=== PATIENT | male | born 1975 | race Caucasian/White ===

== ENCOUNTER 2020-04-28 17:19 | Observation (INO) | payer BC, SELFPAY ==
[2020-04-28] VITALS (11 sets, daily range): BP systolic 101–126; BP diastolic 55–109; PULSE 73–102; RESP 14–20; TEMP 36.4–37.1; O2SAT 97–99; BMI 48.6; BMI 45.2
--- NOTE | 2020-04-28 17:43 | ECG_ITS ---
APPROVED REPORT Exam: Resting ECG HR:94 bpm ECG Measurements Heart Rate 94 AXES SD 138 P 46 QRSd 98 QRS 44 QT 358 T 24 QTc 447 <Conclusion> Normal sinus rhythm Nonspecific ST-T wave abnormalities Abnormal ECG Electronically signed by : Yosi Hancock, 04/29/2020 09:14:17
--- NOTE | 2020-04-28 17:43 | XR_ITS ---
PROCEDURE: XR CHEST 2V Patient Age:44Y CLINICAL HISTORY: syncope episode COMPARISON: [facility] THORACIC SPINE-3V SWIMMERS from 05/14/[id number] abdomen pelvis wo con from 11/08/2018 FINDINGS: PA and lateral chest performed today. Heart normal size with normal pulmonary vascularity. The lalo and mediastinal structures satisfactory.. Upper normal markings right infrahilar region towards right lung base most likely baseline but difficult to exclude a very minor subtle infiltrate.-Clinical correlation required. Suspect more likely reflect mild atelectasis accentuated by the generous overlying soft tissues of the chest accentuating lung markings here. However if respiratory symptoms or fever follow-up recommended I would note that previous CT showed some prominence of the anterior fat pad anteriorly which I believe accounts for minimal density project over the heart anteriorly on the lateral view, just above diaphragm Left lung stable clear.. Chest wall unremarkable. T-spine with no acute findings. Marginal osteophytes throughout most evident anterior and to the right No pleural effusion but no pneumothorax. IMPRESSION: No prominent findings but There is slight accentuation of markings right infrahilar region and towards RLL; more likely reflect mild atelectasis at towards the right lower lobe. Doubt but difficult to totally exclude a subtle early infiltrate-; clinical correlation required. If respiratory symptoms or fever consider follow-up . Dictated by: Anjum Muro MD 04/28/2020 22:18 Electronically signed by Anjum Muro MD in [place] 04/28/2020 22:18
--- NOTE | 2020-04-28 17:49 | HMH.EDGENADL ---
ED Disposition Clinical Impression: Near syncope, Acute kidney injury, Hyperglycemia Chest pain Qualifiers: Chest pain type: other chest pain Qualified Code(s): R07.89 - Other chest pain Disposition: Admitted As Inpatient Condition on Discharge: Good Instructions: DI for Syncope in Adults (Fainting), DI for Syncope in Children (Fainting) Referrals: Melissa Apodaca MD [Primary Care Provider] - Time of Disposition: 20:47 - Critical Care Critical Care Time: No Attestation: On 04/28/20, the high probability of a clinically significant, sudden or life threatening deterioration of the following system(s) required my full and direct attention, intervention and personal management. The time I documented below is in addition to time spent performing reported procedures but includes the following listed in this critical care notation. Medical Decision Making - Medical Records Medical records reviewed: Yes: I reviewed the patient's medical records. - Memo Inquiry Pt receiving controlled substance: No Vital Signs: 04/28/20 17:38 04/28/20 17:46 04/28/20 18:18 Temperature 98.7 F Temperature Source Oral Pulse Rate [Orthostatic Lying Right Radial] 95 H Pulse Rate [Orthostatic Sitting Right Radial] 97 H Pulse Rate [Orthostatic Standing Right Radial] 102 H Pulse Rate [Right Radial] 99 H 89 Respiratory Rate 20 Blood Pressure [Orthostatic Lying Right Arm] 110/55 L Blood Pressure [Orthostatic Sitting Right Arm] 101/58 L Blood Pressure [Orthostatic Standing Right Arm] 105/58 L Blood Pressure [Right Arm] 126/109 H 106/59 L Blood Pressure Mean [Right Arm] 114 74 Blood Pressure Source [Right Arm] Automatic Cuff Blood Pressure Position [Right Arm] Sitting 02 Sat by Pulse Oximetry 97 97 Oxygen Delivery Method Room Air Room Air - Lab Data Lab Results 04/28/20 17:36: WBC 13.4 H, RBC 4.50 L, Hgb 13.7 L, Hct 36.9 L, MCV 81.9, MCH 30.4, MCHC 37.1 H, RDW 13.2, Plt Count 306, MPV 7.9, Neut % (Auto) 62.7, Lymph % (Auto) 31.4, [place] % (Auto) 4.1, Eos % (Auto) 1.3, Baso % (Auto) 0.6, Neut # (Auto) 8.4 H, Lymph # (Auto) 4.2, [place] # (Auto) 0.6, Eos # (Auto) 0.2, Baso # (Auto) 0.1 04/28/20 17:36: Sodium 135 L, Potassium 4.6, Chloride 96 L, Carbon Dioxide 22, Anion Gap 21.6 H, BUN 37 H, Creatinine 2.40 H, Estimated Creat Clear 37, Estimated GFR 29 L, Est GFR ( Amer) 35 L, Glucose 330 H, Calcium 9.2, Total Bilirubin 0.5, AST 27, ALT 28, Alkaline Phosphatase 54, Troponin I < 0.01, Total Protein 7.3, Albumin 4.3, Globulin 3.0, Albumin/Globulin Ratio 1.4 04/28/20 17:36: D-Dimer < 100 Result diagrams: 04/28/20 17:36 04/28/20 17:36 Orders (Tests/Meds): ED MEDICATIONS Generic Name Dose Route Start Last Admin Trade Name Freq PRN Reason Stop Dose Admin Sodium Chloride 1,000 mls @ 999 mls/hr 04/28/20 17:45 04/28/20 17:49 Sod Chlor 0.9% 1000ml Bag IV 04/28/20 18:45 999 mls/hr .Q1H1M [facility] Administration Sodium Chloride 1,000 mls @ 150 mls/hr 04/28/20 20:30 Sod Chlor 0.9% 1000ml Bag IV 05/28/20 20:29 .[id number] [facility] ORDERS Category Date Time Status CTA Chest [CT angio chest] Stat Cat Scan 04/28/20 19:09 Ordered XR chest 2V Stat Exams 04/28/20 17:43 Taken Creatinine,Urine Random Stat Lab 04/28/20 19:42 Ordered Troponin I Q3H Lab 04/28/20 20:39 Received Troponin I Q3H Lab 04/28/20 23:45 Ordered Medical Decision Narrative: In summary this is a 44-year-old male with history of CAD and cardiac stents presenting to the emergency department with chest pain and near syncopal episodes. Patient is clinically stable on arrival. No significant hypertension. Differential diagnoses include cardiac syncope, CAD. And to obtain CBC, CMP, chest x-ray, EKG, troponin profile. EKG shows subtle T wave abnormality, but no significant ST segment elevation, otherwise nonischemic. Initial laboratory results remarkable for elevated glucose at 330. Patient is not on insulin. Also shows elevate
[2020-04-28 17:52] LABS: Basophils # 0.1 K/mm3 (0-0.2); Basophils % 0.6 % (0.1-2.0); Eosinophils # 0.2 K/mm3 (0.0-0.4); Eosinophils % 1.3 % (0.1-12.0); Hematocrit 36.9 % (42.0-52.0); Hemoglobin 13.7 g/dL (14.1-18.0); Lymphocytes # 4.2 K/mm3 (0.7-4.5); Lymphocytes % 31.4 % (10-50); Mean Corpuscular HGB Conc 37.1 g/dL (31.8-35.4); Mean Corpuscular Hemoglobin 30.4 pg (27.0-31.2); Mean Corpuscular Volume 81.9 fl (80-94); Mean Platelet Volume 7.9 fl (7.4-10.4); Monocytes # 0.6 K/mm3 (0.1-1.0); Monocytes % 4.1 % (1.7-9.3); Neutrophils # 8.4 K/mm3 (1.8-7.8); Neutrophils % 62.7 % (37.0-80.0); Platelet Count 306 K/mm3 (142-424); Red Cell Distribution Width 13.2 % (11.5-17.5); White Blood Count 13.4 K/mm3 (4.8-10.8)
[2020-04-28 17:54] LABS: Chloride 96 mmol/L (98-107); Potassium 4.6 mmoL/L (3.5-5.1); Sodium 135 mmol/L (136-145)
[2020-04-28 17:56] LABS: Blood Urea Nitrogen 37 mg/dl (9-20); Creatinine Clearance Estimated 37 mL/min (50-200); Estimated Glomerular Filt Rate 29 ml/min (>60); GFR (African American) 35 ML/MIN (>60)
[2020-04-28 17:57] LABS: Alanine Aminotransferase 28 U/L (12-78); Albumin Level 4.3 g/dl (3.5-5.0); Albumin/Globulin Ratio 1.4 (1.1-1.8); Alkaline Phosphatase 54 U/L (38-126); Anion Gap 21.6 mEq/L (5-15); Aspartate Amino Transferase 27 U/L (17-59); Bilirubin,Total 0.5 mg/dl (0.2-1.3); Carbon Dioxide 22 mmol/L (22.0-30.0); Total Protein,Serum 7.3 g/dl (6.3-8.2)
[2020-04-28 17:58] LABS: Calcium 9.2 mg/dl (8.4-10.2); Glucose 330 mg/dl (74-100)
--- NOTE | 2020-04-28 18:01 | PC.NURSE ---
Pt returned from rad.
[2020-04-28 18:12] LABS: Troponin I < 0.01 ng/ml (0.00-0.034)
[2020-04-28 20:16] LABS: D-Dimer < 100 ng/mL (0-400)
[2020-04-28 21:14] LABS: Troponin I < 0.01 ng/ml (0.00-0.034)
--- NOTE | 2020-04-28 22:01 | PC.NURSE ---
PT ARRIVED TO THE FLOOR VIA W/C FROM ED AT 2200.
--- NOTE | 2020-04-28 23:01 | HMH.HP ---
*Admission Date: 04/28/20 *Chief complaint: Blurry vision, lightheaded *History of present illness: This is the history as recorded in the emergency room on admission : 44-year-old male presenting to the emergency department with chest pain. Symptoms started around 2 hours prior to arrival. Pain is located on the left side of his chest and near his scapula. Has a heavy sensation in his left arm. When pain happens he has spots in his vision and his eyes go llamas. Symptoms lasted for 20 to 30 minutes and then resolved. He has had one episode like this before. It happened yesterday. He had been at work, standing on his feet all day. Has a history of coronary artery disease. Had stents placed 5 years ago. Takes aspirin and a statin. Does not take Plavix or any other blood thinners. Has chest pain every time he exerts himself, but this is been stable for the last few years. Denies any speech difficulty, balance issues, numbness, weakness, tingling in his extremities. Continues to smoke cigarettes, 1 pack/day. 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 The history given to me by the patient seems to be mainly that of blurry vision and lightheadedness. He has had basically 2 episodes of this. The first occurred last Wednesday and the other episode occurred today. He does have known coronary artery disease. His blood sugar was over 300 today. He takes Januvia and metformin. He is not aware of his current A1c. He does continue to smoke. [facility] History Medical History: Reports:: Diabetes Mellitus Type 2, Hyperlipidemia, Hypertension Denies:: Cancer *Have you ever received a pneumonia vaccine?: No *Have you received a flu vaccine this season?: No Other Medical History: Reports: Anemia Laterality Cases: Left: Other (ORIF left ankle 1979) Other Surgeries: Yes: Cardiac Catheterization, Coronary Stent, EGD Amputation: No Fractures: Yes (Left ankle 1979) - *Social History Last grade of school completed: High school graduate Smoking Status: Current every day smoker Tobacco Type: cigarettes (1/2 pack/day) # Packs/Day (cigarettes): 1 Alcohol Intake: current Alcohol Intake Frequency:: holidays/special occasions only *Occupational Status:: employed *Travel in the last 8 weeks: None Family Hx:: Anemia, Diabetes, Heart Attack, Hyperlipidemia, Hypertension, Kidney Disease Review of Systems - Constitutional Denies anorexia, Denies body ache(s), Denies chills - Eyes Reports blurry vision (Occurred once when driving and 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), Reports change in vision - ENT Denies abnormal hearing, Denies dizziness - *Cardiovascular Reports chest pain with activity - *Respiratory Denies chest congestion, Denies cough - *Gastrointestinal Denies abdominal pain, Denies change in bowel habits - *Genitourinary Denies difficulty urinating - *Neurologic Reports other visual disturbances, Reports fainting (Near syncope but no loss of consciousness.), Denies headache(s), Denies loss of vision - Psychiatric Denies behavioral changes Meds Home Medications Medication Instructions Recorded Confirmed Type Atorvastatin Calcium [Lipitor 80mg 80 mg PO HS 04/28/20 04/28/20 History Tablet] Fenofibrate Nanocrystallized 160 mg PO DAILY 04/28/20 04/28/20 History [Fenofibrate] Metformin HCl 500 mg PO BID 04/28/20 04/28/20 History Sitagliptin Phosphate [Januvia 100 mg PO DAILY 04/28/20 04/28/20 History 100mg tablet] hydroCHLOROthiazide [HCTZ 25mg 25 mg PO DAILY 04/28/20 04/28/20 History tab] lisinopriL [Lisinopril 40mg Tablet] 40 mg PO DAILY 04/28/20 04/28/20 History Allergies Allergy/AdvReac Type Severity Reaction Status Date / Time No Known Allergies Allergy Verified 04/28/20 17:42 Exam Vital signs and Labs for Last 24 Hours: Temp Pulse Resp BP Pulse Ox 98.2 F 75 18 110/63 97 04/28/20 21:41 04/28/20 21:41 04/28/20 21:41 04/28/20 21:41 04/28/20 18:18 Laboratory Results - last 24 hr
[2020-04-28 23:41] LABS: Hemoglobin A1C 9.6 % (4.0-6.0)
[2020-04-29] VITALS: BP 102/57; PULSE 70; PULSE 74; RESP 18; TEMP 36.7; O2SAT 96
[2020-04-29 01:42] LABS: Microscopic, Urine URINE MICROSCOPIC (MICROSCOPIC)
[2020-04-29 01:49] LABS: Appearance,Urine CLEAR (Clear); Blood, Urine Negative (Negative); Color,Urine YELLOW (Yellow); Glucose,Urine (UA) 2+ (Negative); Ketones,Urine Negative (Negative); Leukocyte Esterase,Urine Negative (Negative); Nitrate,Urine Negative (Negative); PH,Urine 5.5 (5.0-8.5); Protein,Urine 1+ (Negative); Specific Gravity, Urine >= 1.030 (1.005-1.030); Urobilinogen,Urine 0.2 EU/dl (0.2)
[2020-04-29 01:54] LABS: POC Glucose,Bedside 217 (70-110)
[2020-04-29 01:59] LABS: Bilirubin,Urine Negative (Negative)
[2020-04-29 02:00] LABS: Amorphous Sediment,Urine Trace /lpf
[2020-04-29 02:59] LABS: Creatinine,Urine Random 287 mg/dL (Not Estab.)
--- NOTE | 2020-04-29 03:51 | PC.NURSE ---
Pt has rested well with eyes closed this shift. No c/o of pain. Fall risk bracelet applied due to pt's near-syncope episodes. Ambulates well with standby assistance. No other changes noted at this time, will continue to monitor.
[2020-04-29 04:00] VITALS: BP 123/59; PULSE 76; PULSE 80; RESP 18; TEMP 36.5; O2SAT 97; BMI 45.2
[2020-04-29 05:47] LABS: Basophils # 0.1 K/mm3 (0-0.2); Basophils % 0.4 % (0.1-2.0); Eosinophils # 0.2 K/mm3 (0.0-0.4); Eosinophils % 1.7 % (0.1-12.0); Hematocrit 35.9 % (42.0-52.0); Lymphocytes % 37.6 % (10-50); Mean Corpuscular HGB Conc 36.3 g/dL (31.8-35.4); Mean Corpuscular Hemoglobin 30.4 pg (27.0-31.2); Mean Corpuscular Volume 83.6 fl (80-94); Mean Platelet Volume 7.9 fl (7.4-10.4); Monocytes # 0.4 K/mm3 (0.1-1.0); Monocytes % 3.9 % (1.7-9.3); Neutrophils % 56.4 % (37.0-80.0); Platelet Count 271 K/mm3 (142-424); Red Blood Count 4.29 M/mm3 (4.60-6.20); Red Cell Distribution Width 13.2 % (11.5-17.5); White Blood Count 10.6 K/mm3 (4.8-10.8)
[2020-04-29 05:59] LABS: Anion Gap 15.4 mEq/L (5-15); Blood Urea Nitrogen 39 mg/dl (9-20); Calcium 8.5 mg/dl (8.4-10.2); Carbon Dioxide 23 mmol/L (22.0-30.0); Chloride 101 mmol/L (98-107); Cholesterol 129 mg/dl (140-200); Creatinine Clearance Estimated 45 mL/min (50-200); Estimated Glomerular Filt Rate 36 ml/min (>60); GFR (African American) 44 ML/MIN (>60); Glucose 208 mg/dl (74-100); HDL Cholesterol 26 mg/dl (40-60); Potassium 4.4 mmoL/L (3.5-5.1); Sodium 135 mmol/L (136-145)
--- NOTE | 2020-04-29 06:09 | PC.NURSE ---
Lisa CESAR NOTIFIED OF CONSULT.
[2020-04-29 06:16] LABS: Direct LDL Cholesterol 40.73 mg/dL (100-129)
[2020-04-29 06:19] LABS: Triglycerides 627 mg/dl (30-150)
[2020-04-29 06:55] LABS: POC Glucose,Bedside 232 (70-110)
--- NOTE | 2020-04-29 07:15 | P.CONPHA_ITS ---
[facility] VTE Monitoring - Patient Demographics Admission date: 04/28/20 Report Date: 04/29/20 Time: 07:15 Allergies/Adverse Reactions: Patient Allergies No Known Allergies Allergy (Verified 04/28/20 17:42) Height: 1.73 m Weight: 135.369 kg Patient Problems: Current Active Problems Near syncope (Acute) Acute kidney injury (Acute) Hyperglycemia (Acute) Chest pain (Acute) Blurry vision, bilateral (Acute) History of blurry vision (Acute) Poorly controlled type 2 diabetes mellitus (Acute) Coronary artery disease (Acute) History of coronary artery stent placement (Acute) - VTE Risk Labs: VTE Related Lab Results Hgb 13.0 g/dL (14.1-18.0) L 04/29/20 05:28 Hct 35.9 % (42.0-52.0) L 04/29/20 05:28 Plt Count 271 K/mm3 (142-424) 04/29/20 05:28 BUN 39 mg/dl (9-20) H 04/29/20 05:28 Creatinine 2.00 mg/dl (0.66-1.25) H 04/29/20 05:28 Estimated Creat Clear 45 mL/min (50-200) 04/29/20 05:28 - Prophylaxis VTE Prophylaxis Ordered?: Yes Types of VTE Prophylaxis: TEDS Knee High Location of Applied Device: Bilateral Lower Extremeties - VTE Diagnosis Confirmed Treatment or plan recommended: Continue Current Treatment
--- NOTE | 2020-04-29 07:20 | CA_ITS ---
APPROVED REPORT EXAM: Comprehensive 2D, Doppler, and color-flow Echocardiogram Director Child Abuse Therapy: Katie Roy RT(R) Ht: 5 ft 9 in Wt: 295lbs BSA: 2.44 BP: 110/63 mmHg Indications: CP, smoker, near syncope, HTN, DM, hyperlipidemia, CAD, stents 2D Dimensions LVOT 2.11 cm (M/F) 1.5-2.5 M-Mode Dimensions RVDd 2.58 cm (0.9-2.6) LVDd 4.59 cm (3.5-5.7) LVDs 3.34 cm (3.5-5.7) IVSd 1.18 cm (0.6-1.1) PWd 1.02 cm (0.6-1.1) EF (Teich) 53.10% FS 27.20% EDV (Teich) 96.80 mL ESV (Teich) 45.40 mL LV Diastology E/A Ratio 1.02 Mitral Valve MV A Velocity 85.00 (40-130 cm/s) Left Ventricle Left atrium is mildly enlarged, left ventricle is normal size, mild concentric left ventricular hypertrophy, visually estimated ejection fraction 55% with no regional wall motion abnormality, diastolic parameters are within normal range. Right Ventricle Right atrium and right ventricular normal size and contractility. Aortic Valve Aortic valve is minimally thickened and fibrosed. There is no aortic stenosis or aortic insufficiency. Mitral Valve Mitral valve is grossly normal, there is mild mitral regurgitation. Tricuspid Valve Tricuspid valve is grossly normal, there is mild tricuspid regurgitation. Pulmonic Valve Pulmonic valve is not well visualized. Great Vessels Aortic root is normal size. Pericardium No significant pericardial effusion noted. Conclusion 1. Normal left ventricular size, preserved left ventricular systolic function, visually estimated ejection fraction 55% with no regional wall motion abnormality, diastolic parameters are within normal range. 2. Mild mitral and tricuspid regurgitation. 3. No significant pericardial effusion noted. Electronically signed by : Ludin Garces, 04/29/2020 17:49:14
--- NOTE | 2020-04-29 07:27 | HMH.CNCARD ---
History of Present Illness Consult date: 04/29/20 Requesting physician: Ramiro Holland Consult reason: chest pain Chief complaint: chest pain, lightheadedness, blurry vision Additional Medical History:: 1. Coronary artery disease A. History of 2 coronary stents placed approximately 2014, Dr. Manny Brewster, [place], [place] B. Repeat cardiac cath approximately 2018 with no recurrent significant stenosis per patient 2. Tobacco use, 1 pack/day 3. Hypertension 4. Hyperlipidemia, on statin therapy A. LDL 40, TG >600, HDL 29 on 04/28/2020 5. Diabetes mellitus, type II, poorly controlled A. Hemoglobin A1c 9.6 on 04/28/2020 with triglycerides greater than 600 and hemoglobin A1c 29 6. History of left lower extremity injury requiring surgery as a teenager 7. Lightheadedness, blurry vision with vague chest pain, 04/28/2020 A. Acute renal insufficiency with creatinine 2.4 with GFR of 29, improving with IV fluids B. Troponins normal x2 with no acute EKG changes History of present illness: This is the history as recorded in the emergency room on admission : 44-year-old male presenting to the emergency department with chest pain. Symptoms started around 2 hours prior to arrival. Pain is located on the left side of his chest and near his scapula. Has a heavy sensation in his left arm. When pain happens he has spots in his vision and his eyes go llamas. Symptoms lasted for 20 to 30 minutes and then resolved. He has had one episode like this before. It happened yesterday. He had been at work, standing on his feet all day. Has a history of coronary artery disease. Had stents placed 5 years ago. Takes aspirin and a statin. Does not take Plavix or any other blood thinners. Has chest pain every time he exerts himself, but this is been stable for the last few years. Denies any speech difficulty, balance issues, numbness, weakness, tingling in his extremities. Continues to smoke cigarettes, 1 pack/day. 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 The history given to me by the patient seems to be mainly that of blurry vision and lightheadedness. He has had basically 2 episodes of this. The first occurred last Wednesday and the other episode occurred today. He does have known coronary artery disease. His blood sugar was over 300 today. He takes Januvia and metformin. He is not aware of his current A1c. He does continue to smoke. The above per Dr. Holland 2 episodes of lightheadedness with blurred vision occurring 1 week apart with no episodes of syncope. Patient denies any angina symptoms that he experienced prior to coronary stenting 5 years ago. He denies any palpitations during these episodes. He denies missing any meals prior to these episodes. No recent fever, chills, nausea, vomiting or diarrhea. Patient was admitted for observation overnight with cardiac troponins normal x2. EKG is sinus rhythm with nonspecific ST-T abnormalities and no acute ST segment changes. Patient is noted to have acute renal insufficiency when compared to October labs which were normal. Patient's renal insufficiency is improving overnight. [facility] History Medical History: Reports:: Diabetes Mellitus Type 2, Hyperlipidemia, Hypertension Denies:: Cancer *Have you ever received a pneumonia vaccine?: No *Have you received a flu vaccine this season?: No Other Medical History: Reports: Anemia Laterality Cases: Left: Other (ORIF left ankle 1979) Other Surgeries: Yes: Cardiac Catheterization, Coronary Stent, EGD Amputation: No Fractures: Yes (Left ankle 1979) - *Social History Last grade of school completed: High school graduate Smoking Status: Current every day smoker Tobacco Type: cigarettes (1/2 pack/day) # Packs/Day (cigarettes): 1 Alcohol Intake: current Alcohol Intake Frequency:: holidays/special occasions only *Occupational Status:: employed *Travel in the last 8 weeks: None Family Hx:: Anemia, Diabetes, Heart Attack, Hyperlipidemia, Hypertension, Kidney
--- NOTE | 2020-04-29 07:32 | HMH.PHAINT ---
MEDICATION RECONCILIATION COMPLETED ON PATIENT USING EXTERNAL FILL HISTORY FROM PHARMACY. -RIC HANKS, DICKD
[2020-04-29 07:51] VITALS: BP 130/89; PULSE 76; RESP 18; TEMP 36.9; O2SAT 94
[2020-04-29 08:00] VITALS: PULSE 80; O2SAT 98
--- NOTE | 2020-04-29 08:05 | HMH.ACPN2 ---
Internal Medicine - PN: Subj *Date: 04/29/20 *Time: 08:05 Interval history: Patient states he feels well this morning. He has had no further episodes with dizziness and blurred vision. He denies chest pain and shortness of breath. He has been seen by cardiology who recommends echocardiogram and if normal possible discharge to home with follow-up with cardiology in [place]. Patient is eating without difficulty. He has been up in the room without problems. Laboratory data shows normal troponin I's x2. Cholesterol profile reveals triglycerides at 627, LDL 40.73, and HDL of 26. A1c noted to be 9.6. Chemistry profile reveals a sodium of 135 potassium of 4.4; BUN is 39 with a creatinine of 2. Exam Vital signs and Labs for Last 24 Hours: Temp Pulse Resp BP Pulse Ox 98.5 F 76 18 130/89 94 L 04/29/20 07:51 04/29/20 07:51 04/29/20 07:51 04/29/20 07:51 04/29/20 07:51 Laboratory Results - last 24 hr 04/28/20 17:36: WBC 13.4 H, RBC 4.50 L, Hgb 13.7 L, Hct 36.9 L, MCV 81.9, MCH 30.4, MCHC 37.1 H, RDW 13.2, Plt Count 306, MPV 7.9, Neut % (Auto) 62.7, Lymph % (Auto) 31.4, [place] % (Auto) 4.1, Eos % (Auto) 1.3, Baso % (Auto) 0.6, Neut # (Auto) 8.4 H, Lymph # (Auto) 4.2, [place] # (Auto) 0.6, Eos # (Auto) 0.2, Baso # (Auto) 0.1 04/28/20 17:36: Sodium 135 L, Potassium 4.6, Chloride 96 L, Carbon Dioxide 22, Anion Gap 21.6 H, BUN 37 H, Creatinine 2.40 H, Estimated Creat Clear 37, Estimated GFR 29 L, Est GFR ( Amer) 35 L, Glucose 330 H, Calcium 9.2, Total Bilirubin 0.5, AST 27, ALT 28, Alkaline Phosphatase 54, Troponin I < 0.01, Total Protein 7.3, Albumin 4.3, Globulin 3.0, Albumin/Globulin Ratio 1.4 08/02/20 17:36: D-Dimer < 100 04/28/20 17:36: Hemoglobin A1c 9.6 H 04/28/20 20:39: Troponin I < 0.01 04/28/20 23:47: POC Glucose 217 H 04/29/20 01:26: Urine Creatinine 287 04/29/20 01:26: Urine Color Yellow, Urine Appearance Clear, Urine pH 5.5, Ur Specific [place] >= 1.030, Urine Protein 1+, Urine Glucose (UA) 2+, Urine Ketones Negative, Urine Blood Negative, Urine Nitrate Negative, Urine Bilirubin Negative, Urine Urobilinogen 0.2, Ur Leukocyte Esterase Negative, Amorphous Sediment Trace 04/29/20 05:28: WBC 10.6, RBC 4.29 L, Hgb 13.0 L, Hct 35.9 L, MCV 83.6, MCH 30.4, MCHC 36.3 H, RDW 13.2, Plt Count 271, MPV 7.9, Neut % (Auto) 56.4, Lymph % (Auto) 37.6, [place] % (Auto) 3.9, Eos % (Auto) 1.7, Baso % (Auto) 0.4, Neut # (Auto) 6.0, Lymph # (Auto) 4.0, [place] # (Auto) 0.4, Eos # (Auto) 0.2, Baso # (Auto) 0.1 04/29/20 05:28: Sodium 135 L, Potassium 4.4, Chloride 101, Carbon Dioxide 23, Anion Gap 15.4 H, BUN 39 H, Creatinine 2.00 H, Estimated Creat Clear 45, Estimated GFR 36 L, Est GFR ( Amer) 44 L D, Glucose 208 H D, Calcium 8.5, Triglycerides 627 H, Cholesterol 129 L, LDL Cholesterol Direct 40.73 L, HDL Cholesterol 26 L, Cholesterol/HDL Ratio 5.0 H 04/29/20 06:31: POC Glucose 232 H I & O for Last 24 hours: Intake & Output 04/26/20 04/27/20 04/28/20 04/29/20 11:59 11:59 11:59 11:59 Intake Total 360 / 360 Output Total 900 / 900 Balance -540 / -540 Weight 298 lb 7 oz - Constitutional no acute distress Comments: Sitting in chair at bedside eating his breakfast. He appears comfortable. - *Routine Respiratory Exam Present: CTA bilaterally (Posteriorly and anteriorly) - *Routine Cardiovascular Exam Present: RRR - *Routine Abdominal Exam Present: soft, normoactive bowel sounds. Absent: tenderness - *Routine Extremities Exam Absent: edema, calf tenderness Assessment and Plan (1) Blurry vision, bilateral Current visit: Yes Status: Acute Category: Medical Code(s): H53.8 - Other visual disturbances (2) History of blurry vision Current visit: Yes Status: Acute Category: Medical Code(s): Z86.69 - Personal history of other diseases of the nervous system and sense organs (3) Chest pain Current visit: Yes Status: Acute Qualifiers: Chest pain type: other chest pain Qualified Code(s
[2020-04-29 08:10] LABS: Troponin I < 0.01 ng/ml (0.00-0.034)
[2020-04-29 11:15] VITALS: BP 156/86; PULSE 74; RESP 18; TEMP 36.6; O2SAT 98
[2020-04-29 12:00] VITALS: PULSE 71
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
[2020-04-30 08:54] LABS: POC Glucose,Bedside 220 (70-110)
[2020-04-30 11:16] LABS: Sodium, Urine 74 mmol/L (Not Estab.)
== END 2020-04-29 13:50 | disposition home or self-care (01) ==
LOC: ER 20:48 → 2ND 21:51
PROVIDERS: Physician Assistant; Admitting Provider Family Medicine; Emergency Provider Emergency Medicine; PCP Nurse Practitioner; Visit Provider Family Medicine
DX: R55 Syncope and collapse (principal); N17.9 Acute kidney failure, unspecified; E11.65 Type 2 diabetes mellitus with hyperglycemia; Z79.84 Long term (current) use of oral hypoglycemic drugs; Z72.0 Tobacco use; Z95.5 Presence of coronary angioplasty implant and graft; I10 Essential (primary) hypertension; E78.5 Hyperlipidemia, unspecified; I25.10 Atherosclerotic heart disease of native coronary artery without angina pectoris; H53.8 Other visual disturbances; Z79.899 Other long term (current) drug therapy
CPT/HCPCS: 36415; 71046; 80048; 80053; 80061; 81001; 82570; 82962; 83036; 84300; 84484; 85025; 85378; 93005; 93306; 96365; 99284; G0378; Q9957

== ENCOUNTER 2020-08-12 12:24 | Emergency (ER) | payer OTHER, BC, SELFPAY ==
[2020-08-12] VITALS (7 sets, daily range): BP systolic 147–167; BP diastolic 95–112; PULSE 85–90; RESP 18; TEMP 36.8; O2SAT 95–97; BMI 43.0
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
--- NOTE | 2020-08-12 12:45 | PC.NURSE ---
notified rad of orders on pt.
--- NOTE | 2020-08-12 13:24 | PC.NURSE ---
pt gone to radiology
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
== END 2020-08-12 14:46 | disposition home or self-care (01) ==
PROVIDERS: Emergency Provider Emergency Medicine; PCP Family Medicine
DX: M25.552 Pain in left hip (principal); V43.52XA Car driver injured in collision with other type car in traffic accident, initial encounter; Y92.414 Local residential or business street as the place of occurrence of the external cause
CPT/HCPCS: 70450; 71046; 72125; 73502; 99283; J1040